=== PATIENT | female | born 1965 | race Caucasian/White ===

== ENCOUNTER → 2023-11-10 13:15 | Outpatient (REF) | payer BC, SELFPAY | LOC: WDC 13:15 | PROVIDERS: ATTENDING PHYSICIAN Obstetrics & Gynecology | DX: Z12.31 Encounter for screening mammogram for malignant neoplasm of breast (principal) | CPT/HCPCS: 77063; 77067 ==

== ENCOUNTER → 2024-02-22 09:15 | Outpatient (REF) | payer BC, SELFPAY | LOC: RCS 09:15 | PROVIDERS: ATTENDING PHYSICIAN Internal Medicine Cardiovascular Disease; FAMILY PHYSICIAN Nurse Practitioner Adult Health | DX: R07.9 Chest pain, unspecified (principal); I10 Essential (primary) hypertension | CPT/HCPCS: 93306 ==

== ENCOUNTER → 2024-02-23 09:05 | Outpatient (REF) | payer SELFPAY | LOC: RAD 09:05 | PROVIDERS: ATTENDING PHYSICIAN Internal Medicine Cardiovascular Disease; FAMILY PHYSICIAN Student in an Organized Health Care Education/Training Program | DX: R07.9 Chest pain, unspecified (principal); I10 Essential (primary) hypertension | CPT/HCPCS: 75571 ==

== ENCOUNTER → 2024-11-14 07:45 | Outpatient (REF) | payer BC, SELFPAY | LOC: WDC 07:45 | PROVIDERS: ATTENDING PHYSICIAN Obstetrics & Gynecology; FAMILY PHYSICIAN Internal Medicine | DX: Z12.31 Encounter for screening mammogram for malignant neoplasm of breast (principal) | CPT/HCPCS: 77063; 77067 ==

== ENCOUNTER → 2025-07-04 11:56 | Outpatient (REF) | payer BC, OTHER, SELFPAY ==
[2025-07-04 12:10] LABS: Hematocrit 38.6 % (37.0-47.0); Hemoglobin 11.8 g/dL (12.0-16.0); Mean Corp Hgb Conc. 30.6 g/dL (33.0-37.0); Mean Corpuscular Volume 80.4 fL (81.0-99.0); Platelet Count 346 10^3/uL (130-400); Red Cell Dist. Width 14.1 % (11.5-14.5)
== END ==
LOC: OIDL 11:56
PROVIDERS: ATTENDING PHYSICIAN Student in an Organized Health Care Education/Training Program
DX: D47.3 Essential (hemorrhagic) thrombocythemia (principal)
CPT/HCPCS: 36415; 85025

== ENCOUNTER 2025-07-31 09:17 | Outpatient (RCR) | payer OTHER, SELFPAY ==
[2025-07-24 09:53] VITALS: BP 122/75
[2025-07-24] MEDS: VENOFER 110 MG IV (09:54)
[2025-07-24 11:04] VITALS: BP 134/74
[2025-07-26 09:30] VITALS: BP 136/83
[2025-07-26] MEDS: VENOFER 110 MG IV (10:10)
[2025-07-26 11:15] VITALS: BP 143/77
[2025-07-31 09:30] VITALS: BP 135/82
[2025-07-31] MEDS: VENOFER 110 MG IV (09:42)
[2025-07-31 11:00] VITALS: BP 138/82
== END 2025-07-31 13:46 | disposition home or self-care (01) ==
LOC: OID 09:17
PROVIDERS: ATTENDING PHYSICIAN Student in an Organized Health Care Education/Training Program
DX: D50.9 Iron deficiency anemia, unspecified (principal)
CPT/HCPCS: 96365; J1756